=== PATIENT | male | born 1960 | race Caucasian/White ===

== ENCOUNTER 2018-06-19 10:04 | Outpatient (CLI) | payer OTHER, SELFPAY ==
[2018-06-20 11:53] LABS: PSA, Screening 0.6 ng/ml (0-4.5)
== END 2018-06-19 10:24 ==
PROVIDERS: PCP Family Medicine; Visit Provider Family Medicine
DX: Z12.5 Encounter for screening for malignant neoplasm of prostate (principal); N40.0 Benign prostatic hyperplasia without lower urinary tract symptoms
CPT/HCPCS: 36415; 84153

== ENCOUNTER 2024-05-14 18:46 | Outpatient (REF) | payer MEDICARE, OTHER, SELFPAY ==
[2024-05-14 22:29] LABS: Abs Immature Grans 0.05 10^3/uL (0.0-0.06); Absolute Basophil Count 0.04 10^3/uL (0.0-0.2); Absolute Eosinophil Count 0.52 10^3/uL (0.0-0.7); Absolute Lymphocyte Count 0.94 10^3/uL (1.2-3.4); Absolute Monocyte Count 0.91 10^3/uL (0.1-0.8); Absolute Neutrophil Count 11.94 10^3/uL (1.2-6.7); Basophils % 0.3 %; Eosinophils % 3.6 %; HCT 45.7 % (40.0-50.0); HGB 15.9 g/dL (13.5-17.5); Immature Grans % 0.3 %; Lymphocytes % 6.5 %; MCH 28.3 pg (27.0-33.0); MCHC 34.8 % (32.0-36.0); MCV 82 fL (80-95); MPV 10.2 fL (8.0-11.0); Monocytes % 6.3 %; Platelet Count 244 10^3/uL (130-400); RBC 5.61 10^6/uL (4.36-5.78); RDW-SD 38.6 fL; WBC 14.39 10^3/uL (4.4-10.8)
[2024-05-14 22:51] LABS: ALT 29 U/L (16-63); AST 12 U/L (15-37); Albumin 2.7 g/dL (3.4-5.0); Alkaline Phosphatase 84 U/L (46-116); Anion Gap 6.7 mmol/L (3-11); BUN 13 mg/dL (7-18); Bilirubin, Total 0.87 mg/dL (0.2-1.0); CO2 28.3 mmol/L (21.0-32.0); CREATININE 0.8 mg/dL (0.70-1.30); Calcium 8.7 mg/dL (8.5-10.1); Chloride 100 mmol/L (98-107); Estimated GFR 97.61 (mL/min/1.73m2); Glucose 145 mg/dL (74-106); Potassium 4.7 mmol/L (3.5-5.1); Sodium 135 mmol/L (136-145); Total Protein 5.9 g/dL (6.4-8.2)
[2024-05-16 15:55] LABS: Lyme Ab w Rflx to Lyme Confirm Negative (Negative)
[2024-05-18 15:18] LABS: Anaplasma phagocytophilum Negative (Negative); B. miyamotoi PCR Negative (Negative); Babesia divergens/MO-1 Negative (Negative); Babesia duncani Negative (Negative); Babesia microti Negative (Negative); Ehrlichia chaffeensis Negative (Negative); Ehrlichia ewingii/canis Negative (Negative); Ehrlichia muris eauclairensis Negative (Negative)
== END 2024-05-14 18:47 | disposition home or self-care (01) ==
LOC: LBN 18:46
PROVIDERS: PCP Family Medicine; Visit Provider Nurse Practitioner Family
DX: R50.9 Fever, unspecified (principal)
CPT/HCPCS: 80053; 87798; 85025; 86618